=== PATIENT | male | born 1980 | race Caucasian/White ===

== ENCOUNTER 2018-05-29 15:32 | Inpatient (IN) ==
[2018-05-29] MEDS ORDERED: SODIUM CHLORIDE 0.9% 500 ML IV STA (16:27)
[2018-05-29 16:34] LABS: Apearance,Urine CLEAR (Clear); Bilirubin,Urine Negative (Negative); Blood, Urine Negative (Negative); Glucose,Urine (UA) Negative (Negative); Ketones,Urine Negative (Negative); Mucus,Urine Occasional /LPF (Occasional); Nitrite,Urine Negative (Negative); Protein,Urine Negative; RBC,Urine 1 /HPF (0-4); Urine Color Yellow (Yellow); Urine Urobilinogen < 2.0 EU/DL (0.2-1.0); WBC,Urine <1 /HPF (0-6)
[2018-05-29 16:38] LABS: Barbiturates Screen,Urine Negative (Negative); Benzodiazepines Screen,Urine Positive (Negative); Cannabinoid Screen,Urine Negative (Negative); Opiate Screen,Urine Negative (Negative); Phencyclidine Screen,Urine Negative (Negative)
[2018-05-29 18:06] LABS: Basophils % 0.2 % (0.0-0.8); Eosinophils # 0.3 10*3/uL (0.0-0.87); Eosinophils % 4.8 % (0.00-10.9); Hematocrit 37.2 VOL% (42.0-52.0); Hemoglobin 12.5 GM/DL (14.0-18.0); Immature Granulocytes % 0.5 %; Immature Granulocytes Absolute 0.03 #; Lymphocytes # 1.8 10*3/uL (1.4-4.0); Lymphocytes % 29.1 % (21.2-54.2); Mean Corpuscular HGB Conc 33.6 GM/DL (32-36); Mean Corpuscular Hemoglobin 32 PG (27-34); Mean Corpuscular Volume 96.4 FL (87-102); Mean Platelet Volume 9.6 FL (9.6-12.0); Monocytes # 0.5 10*3/uL (0.11-0.8); Monocytes % 8.9 % (1.7-12.7); Neutrophils # 3.4 10*3/uL (1.4-7.4); Neutrophils % 56.5 % (38.7-73.9); Platelet Count 249 T/CUMM (130-400); Red Blood Count 3.86 MC/CUMM (3.8-5.5); Red Cell Distribution Width 12.4 % (9.3-17.3); White Blood Count 6.1 T/CUMM (4-12)
[2018-05-29 18:19] LABS: INR 1.1; PT Patient Result 11.2 SECS
[2018-05-29 18:21] LABS: Ammonia 299 UMOL/L (11-32)
[2018-05-29 18:32] LABS: Alanine Aminotransferase 26 U/L (16-61); Alkaline Phosphatase 57 U/L (45-117); Aspartate Amino Transferase 25 U/L (0-37); Bilirubin,Total < 0.39 MG/DL (0.2-1.0); Blood Urea Nitrogen 11 MG/DL (7-18); Calcium 8.6 MG/DL (8.5-10.1); Glucose 93 MG/DL (74-106); Osmolality,Calculated 286.7 MOS/KG (273-304); Sodium 145 MMOL/L (136-145); Thyroid Stimulating Hormone 0.559 uIU/ml (0.358-3.74); Total Protein 7.1 G/DL (6.4-8.3); Troponin I < 0.015 NG/ML (0.00-0.045)
[2018-05-29 18:47] LABS: Salicylate < 2.8 MG/DL (2.8-20)
[2018-05-29 18:48] LABS: Acetaminophen < 2.0 UG/ML (10-30)
[2018-05-29] MEDS ORDERED: PROPOFOL 1,000 MG/100 ML BOTTLE IV ONE (19:34)
[2018-05-29] MEDS ORDERED: ROCURONIUM 100 MG/10 ML VIAL IV ONE (21:03)
[2018-05-29] MEDS ORDERED: ETOMIDATE 20 MG/10 ML VIAL IV ONE (21:03)
[2018-05-29] MEDS ORDERED: VECURONIUM 10 MG VIAL IV ONE (21:03)
[2018-05-29 21:11] LABS: ABG Base Excess -0.2 MMOL/L (-2.5-2.5); ABG HCO3 25.4 MMOL/L (20-26); ABG Oxygen Saturation 98.4 % (95-100); ABG PCO2 45.1 MM HG (35-48); ABG PH 7.368 (7.35-7.45); ABG PO2 140.5 MM HG (80-95); ABG TCO2 26.8 MMOL/L (23-27)
[2018-05-29] MEDS ORDERED: ONDANSETRON 4 MG/2 ML VIAL IV PRN (21:11)
[2018-05-29] MEDS ORDERED: ALBUTEROL 2.5 MG/3 ML NEB RESP TX PRN (21:11)
[2018-05-29] MEDS: SODIUM CHLORIDE 0.9% 1,000 ML IV SCH (21:58)
[2018-05-29] MEDS: LACTULOSE 20 GM/30 ML UDCUP NG SCH (21:58)
[2018-05-29] MEDS: MIDAZOLAM 100 MG in SODIUM CHLORIDE 0.9% 80 ML IV PRN (21:59)
[2018-05-29] MEDS: ENOXAPARIN 40 MG/0.4 ML SYRINGE SUBCUT SCH (21:59)
[2018-05-29] MEDS: PANTOPRAZOLE 40 MG VIAL IV SCH (22:56)
[2018-05-30] MEDS: LACTULOSE 20 GM/30 ML UDCUP NG SCH ×6 (00:51→21:45)
[2018-05-30] MEDS: PROPOFOL 1,000 MG/100 ML BOTTLE IV SCH ×5 (01:58→18:31)
[2018-05-30 04:00] LABS: ABG Base Excess 0.7 MMOL/L (-2.5-2.5); ABG HCO3 25.9 MMOL/L (20-26); ABG Oxygen Saturation 98.6 % (95-100); ABG PCO2 43.9 MM HG (35-48); ABG PH 7.389 (7.35-7.45); ABG PO2 169.2 MM HG (80-95); ABG TCO2 27.3 MMOL/L (23-27); Allen Test Positive; Pt O2 Delivery Device Ventilator
[2018-05-30 05:36] LABS: Basophils % 0.3 % (0.0-0.8); Eosinophils # 0.3 10*3/uL (0.0-0.87); Eosinophils % 4.8 % (0.00-10.9); Hematocrit 33.5 VOL% (42.0-52.0); Hemoglobin 11.3 GM/DL (14.0-18.0); Immature Granulocytes % 1.3 %; Immature Granulocytes Absolute 0.08 #; Lymphocytes # 1.7 10*3/uL (1.4-4.0); Lymphocytes % 27.4 % (21.2-54.2); Mean Corpuscular HGB Conc 33.7 GM/DL (32-36); Mean Corpuscular Hemoglobin 32 PG (27-34); Mean Corpuscular Volume 95.2 FL (87-102); Mean Platelet Volume 9.7 FL (9.6-12.0); Monocytes # 0.6 10*3/uL (0.11-0.8); Monocytes % 10.6 % (1.7-12.7); Neutrophils # 3.4 10*3/uL (1.4-7.4); Neutrophils % 55.6 % (38.7-73.9); Platelet Count 258 T/CUMM (130-400); Red Blood Count 3.52 MC/CUMM (3.8-5.5); Red Cell Distribution Width 12.5 % (9.3-17.3); White Blood Count 6.1 T/CUMM (4-12)
[2018-05-30 05:57] LABS: Ammonia 90 UMOL/L (11-32)
[2018-05-30 06:02] LABS: Alanine Aminotransferase 23 U/L (16-61); Albumin 2.6 G/DL (3.4-5.0); Alkaline Phosphatase 53 U/L (45-117); Aspartate Amino Transferase 22 U/L (0-37); Bilirubin,Total < 0.39 MG/DL (0.2-1.0); Blood Urea Nitrogen 11 MG/DL (7-18); Glucose 83 MG/DL (74-106); Osmolality,Calculated 291.3 MOS/KG (273-304); Sodium 148 MMOL/L (136-145); Total Protein 6.3 G/DL (6.4-8.3)
[2018-05-30] MEDS: SODIUM CHLORIDE 0.9% 1,000 ML IV SCH ×3 (06:20→17:10)
[2018-05-30] MEDS: MIDAZOLAM 100 MG in SODIUM CHLORIDE 0.9% 80 ML IV PRN (08:14)
[2018-05-30] MEDS: ENOXAPARIN 40 MG/0.4 ML SYRINGE SUBCUT SCH (21:45)
[2018-05-30] MEDS: PANTOPRAZOLE 40 MG VIAL IV SCH (21:46)
[2018-05-31] MEDS: SODIUM CHLORIDE 0.9% 1,000 ML IV SCH ×4 (01:10→17:37)
[2018-05-31] MEDS: PROPOFOL 1,000 MG/100 ML BOTTLE IV SCH ×5 (01:10→22:18)
[2018-05-31] MEDS: LACTULOSE 20 GM/30 ML UDCUP NG SCH ×6 (02:21→21:10)
[2018-05-31] MEDS: MIDAZOLAM 100 MG in SODIUM CHLORIDE 0.9% 80 ML IV PRN ×2 (03:25→21:09)
[2018-05-31 03:34] LABS: ABG Base Excess -0.1 MMOL/L (-2.5-2.5); ABG HCO3 24.4 MMOL/L (20-26); ABG Oxygen Saturation 99.1 % (95-100); ABG PCO2 35.4 MM HG (35-48); ABG PH 7.434 (7.35-7.45); ABG TCO2 20.9 MMOL/L (23-27); Allen Test Positive; Pt O2 Delivery Device Ventilator
[2018-05-31 04:37] LABS: Basophils % 0.2 % (0.0-0.8); Eosinophils # 0.3 10*3/uL (0.0-0.87); Eosinophils % 2.9 % (0.00-10.9); Hematocrit 36.5 VOL% (42.0-52.0); Hemoglobin 12.1 GM/DL (14.0-18.0); Immature Granulocytes % 0.5 %; Immature Granulocytes Absolute 0.05 #; Lymphocytes # 1.3 10*3/uL (1.4-4.0); Lymphocytes % 13.8 % (21.2-54.2); Mean Corpuscular HGB Conc 33.2 GM/DL (32-36); Mean Corpuscular Hemoglobin 32 PG (27-34); Mean Corpuscular Volume 96.6 FL (87-102); Mean Platelet Volume 9.6 FL (9.6-12.0); Monocytes # 0.8 10*3/uL (0.11-0.8); Monocytes % 7.8 % (1.7-12.7); Neutrophils # 7.3 10*3/uL (1.4-7.4); Neutrophils % 74.8 % (38.7-73.9); Platelet Count 265 T/CUMM (130-400); Red Blood Count 3.78 MC/CUMM (3.8-5.5); Red Cell Distribution Width 12.5 % (9.3-17.3); White Blood Count 9.7 T/CUMM (4-12)
[2018-05-31 05:04] LABS: Calcium 8.3 MG/DL (8.5-10.1); Osmolality,Calculated 290.4 MOS/KG (273-304)
[2018-05-31] MEDS: chlordiazePOXIDE 25 MG CAPSULE PO SCH ×3 (08:34→21:10)
[2018-05-31] MEDS: QUEtiapine 100 MG TABLET PER TUBE SCH ×2 (12:31→21:10)
[2018-05-31] MEDS ORDERED: GLUCAGON 1 MG VIAL IM PRN (14:07)
[2018-05-31] MEDS ORDERED: DEXTROSE 50% 25 GM/50 ML VIAL IV PRN (14:07)
[2018-05-31] MEDS: INSULIN REGULAR 100 UNIT/ML SUBCUT SCH ×2 (19:07→23:57)
[2018-05-31] MEDS: PANTOPRAZOLE 40 MG VIAL IV SCH (21:10)
[2018-05-31] MEDS: ENOXAPARIN 40 MG/0.4 ML SYRINGE SUBCUT SCH (21:10)
[2018-06-01] MEDS: LACTULOSE 20 GM/30 ML UDCUP NG SCH ×6 (01:14→20:38)
[2018-06-01] MEDS: SODIUM CHLORIDE 0.9% 1,000 ML IV SCH ×4 (01:29→18:25)
[2018-06-01] MEDS: PROPOFOL 1,000 MG/100 ML BOTTLE IV SCH ×7 (01:56→22:03)
[2018-06-01 02:55] LABS: ABG Base Excess 0.5 MMOL/L (-2.5-2.5); ABG HCO3 24.9 MMOL/L (20-26); ABG Oxygen Saturation 99.3 % (95-100); ABG PCO2 41.1 MM HG (35-48); ABG PH 7.398 (7.35-7.45); ABG TCO2 22.7 MMOL/L (23-27); Allen Test Positive; Pt O2 Delivery Device Ventilator
[2018-06-01 03:21] LABS: Basophils % 0.3 % (0.0-0.8); Eosinophils # 0.3 10*3/uL (0.0-0.87); Hematocrit 33.5 VOL% (42.0-52.0); Hemoglobin 10.8 GM/DL (14.0-18.0); Immature Granulocytes % 0.8 %; Immature Granulocytes Absolute 0.06 #; Lymphocytes % 25.9 % (21.2-54.2); Mean Corpuscular HGB Conc 32.2 GM/DL (32-36); Mean Corpuscular Hemoglobin 32 PG (27-34); Mean Corpuscular Volume 99.1 FL (87-102); Mean Platelet Volume 9.5 FL (9.6-12.0); Monocytes # 0.7 10*3/uL (0.11-0.8); Monocytes % 9.2 % (1.7-12.7); Neutrophils # 4.6 10*3/uL (1.4-7.4); Neutrophils % 59.8 % (38.7-73.9); Platelet Count 220 T/CUMM (130-400); Red Blood Count 3.38 MC/CUMM (3.8-5.5); Red Cell Distribution Width 12.2 % (9.3-17.3); White Blood Count 7.7 T/CUMM (4-12)
[2018-06-01 03:46] LABS: Osmolality,Calculated 290.4 MOS/KG (273-304); Potassium 3.6 MMOL/L (3.5-5.1)
[2018-06-01 04:59] LABS: Prealbumin 17.6 MG/DL (20-40)
[2018-06-01] MEDS: INSULIN REGULAR 100 UNIT/ML SUBCUT SCH ×4 (06:07→23:07)
[2018-06-01] MEDS: QUEtiapine 100 MG TABLET PER TUBE SCH ×2 (09:23→20:39)
[2018-06-01] MEDS: chlordiazePOXIDE 25 MG CAPSULE PO SCH ×3 (09:23→20:39)
[2018-06-01] MEDS: HALOPERIDOL 5 MG/ML AMP IM PRN (09:33)
[2018-06-01] MEDS ORDERED: HALOPERIDOL 5 MG/ML AMP IM PRN (10:02)
[2018-06-01] MEDS ORDERED: LORazepam 2 MG/1 ML VIAL IV ONE (10:05)
[2018-06-01] MEDS: LORazepam 2 MG/1 ML VIAL IM PRN ×2 (10:15→10:25)
[2018-06-01] MEDS ORDERED: ETOMIDATE 20 MG/10 ML VIAL IV ONE ×2 (10:30→10:36)
[2018-06-01] MEDS ORDERED: SUCCINYLCHOLINE 200 MG/10 ML VIAL IV ONE ×2 (10:30→10:45)
[2018-06-01] MEDS ORDERED: PROPOFOL 1,000 MG/100 ML BOTTLE IV ONE (10:36)
[2018-06-01] MEDS ORDERED: SUCCINYLCHOLINE 200 MG/10 ML VIAL ONE (10:36)
[2018-06-01] MEDS: MIDAZOLAM 100 MG in SODIUM CHLORIDE 0.9% 80 ML IV PRN (12:16)
[2018-06-01] MEDS ORDERED: DIVALPROEX ER 500 MG TABLET PO SCH (14:30)
[2018-06-01] MEDS: ARIPiprazole 5 MG TABLET PER TUBE SCH (16:18)
[2018-06-01] MEDS: BENZTROPINE 1 MG TABLET PER TUBE SCH ×2 (16:18→20:39)
[2018-06-01] MEDS: DIVALPROEX 500 MG TABLET PO SCH ×2 (16:18→20:39)
[2018-06-01] MEDS: LOSARTAN 25 MG TABLET PER TUBE SCH (16:19)
[2018-06-01] MEDS: risperiDONE 1 MG TABLET PER TUBE SCH ×2 (16:19→20:39)
[2018-06-01] MEDS: amLODIPine 10 MG TABLET PER TUBE SCH (16:19)
[2018-06-01] MEDS: OLANZapine 5 MG TABLET PER TUBE SCH (20:39)
[2018-06-01] MEDS: PANTOPRAZOLE 40 MG VIAL IV SCH (20:40)
[2018-06-01] MEDS: ENOXAPARIN 40 MG/0.4 ML SYRINGE SUBCUT SCH (20:40)
[2018-06-02] MEDS: LACTULOSE 20 GM/30 ML UDCUP NG SCH ×6 (01:13→20:25)
[2018-06-02] MEDS: PROPOFOL 1,000 MG/100 ML BOTTLE IV SCH ×8 (01:13→21:44)
[2018-06-02] MEDS: SODIUM CHLORIDE 0.9% 1,000 ML IV SCH ×3 (02:03→10:05)
[2018-06-02 04:03] LABS: ABG Base Excess 2.9 MMOL/L (-2.5-2.5); ABG Oxygen Saturation 98.2 % (95-100); ABG PCO2 49.9 MM HG (35-48); ABG PH 7.371 (7.35-7.45); ABG TCO2 26.2 MMOL/L (23-27)
[2018-06-02] MEDS: INSULIN REGULAR 100 UNIT/ML SUBCUT SCH ×4 (05:26→23:58)
[2018-06-02] MEDS: LOSARTAN 25 MG TABLET PER TUBE SCH (09:27)
[2018-06-02] MEDS: amLODIPine 10 MG TABLET PER TUBE SCH (09:27)
[2018-06-02] MEDS: DIVALPROEX 500 MG TABLET PO SCH ×2 (09:27→20:25)
[2018-06-02] MEDS: chlordiazePOXIDE 25 MG CAPSULE PO SCH ×3 (09:27→20:26)
[2018-06-02] MEDS: BENZTROPINE 1 MG TABLET PER TUBE SCH ×2 (09:27→20:26)
[2018-06-02] MEDS: risperiDONE 1 MG TABLET PER TUBE SCH ×2 (09:53→20:25)
[2018-06-02] MEDS: ARIPiprazole 5 MG TABLET PER TUBE SCH (09:57)
[2018-06-02] MEDS: SODIUM CHLORIDE 0.45% 1,000 ML IV SCH ×2 (15:36→23:57)
[2018-06-02] MEDS: cloNIDine 0.1 MG TABLET PO PRN (16:28)
[2018-06-02] MEDS: QUEtiapine 100 MG TABLET PER TUBE SCH (20:25)
[2018-06-02] MEDS: OLANZapine 5 MG TABLET PER TUBE SCH (20:26)
[2018-06-02] MEDS: PANTOPRAZOLE 40 MG VIAL IV SCH (20:26)
[2018-06-02] MEDS: ENOXAPARIN 40 MG/0.4 ML SYRINGE SUBCUT SCH (20:35)
[2018-06-03] MEDS: PROPOFOL 1,000 MG/100 ML BOTTLE IV SCH ×7 (00:50→23:40)
[2018-06-03] MEDS: LACTULOSE 20 GM/30 ML UDCUP NG SCH ×6 (01:55→20:26)
[2018-06-03] MEDS: MIDAZOLAM 100 MG in SODIUM CHLORIDE 0.9% 80 ML IV PRN (03:33)
[2018-06-03 04:05] LABS: ABG Base Excess 4.2 MMOL/L (-2.5-2.5); ABG HCO3 28.2 MMOL/L (20-26); ABG Oxygen Saturation 96.5 % (95-100); ABG PCO2 48.6 MM HG (35-48); ABG PH 7.399 (7.35-7.45); ABG TCO2 26.6 MMOL/L (23-27)
[2018-06-03] MEDS: INSULIN REGULAR 100 UNIT/ML SUBCUT SCH ×4 (05:20→23:22)
[2018-06-03] MEDS: SODIUM CHLORIDE 0.45% 1,000 ML IV SCH ×3 (08:58→23:40)
[2018-06-03] MEDS: BENZTROPINE 1 MG TABLET PER TUBE SCH ×2 (09:27→20:26)
[2018-06-03] MEDS: LOSARTAN 25 MG TABLET PER TUBE SCH (09:27)
[2018-06-03] MEDS: amLODIPine 10 MG TABLET PER TUBE SCH (09:27)
[2018-06-03] MEDS: ARIPiprazole 5 MG TABLET PER TUBE SCH (09:28)
[2018-06-03] MEDS: chlordiazePOXIDE 25 MG CAPSULE PO SCH ×3 (09:28→20:26)
[2018-06-03] MEDS: DIVALPROEX 500 MG TABLET PO SCH ×2 (09:28→20:26)
[2018-06-03] MEDS: risperiDONE 1 MG TABLET PER TUBE SCH ×2 (09:30→20:26)
[2018-06-03 11:43] LABS: Calcium 8.1 MG/DL (8.5-10.1); Osmolality,Calculated 291.4 MOS/KG (273-304); Potassium 3.4 MMOL/L (3.5-5.1)
[2018-06-03] MEDS: OLANZapine 5 MG TABLET PER TUBE SCH (20:26)
[2018-06-03] MEDS: QUEtiapine 100 MG TABLET PER TUBE SCH (20:26)
[2018-06-03] MEDS: PANTOPRAZOLE 40 MG VIAL IV SCH (20:27)
[2018-06-03] MEDS: ENOXAPARIN 40 MG/0.4 ML SYRINGE SUBCUT SCH (20:45)
[2018-06-04] MEDS: LACTULOSE 20 GM/30 ML UDCUP NG SCH ×6 (01:03→20:49)
[2018-06-04] MEDS: PROPOFOL 1,000 MG/100 ML BOTTLE IV SCH ×7 (02:35→22:18)
[2018-06-04 04:18] LABS: Calcium 7.8 MG/DL (8.5-10.1); Osmolality,Calculated 294.1 MOS/KG (273-304); Potassium 3.6 MMOL/L (3.5-5.1); Prealbumin 19.2 MG/DL (20-40)
[2018-06-04 05:18] LABS: ABG Base Excess 4.3 MMOL/L (-2.5-2.5); ABG HCO3 28.3 MMOL/L (20-26); ABG Oxygen Saturation 97.4 % (95-100); ABG PCO2 43.5 MM HG (35-48); ABG PH 7.435 (7.35-7.45); ABG PO2 94.9 MM HG (80-95); ABG TCO2 24.9 MMOL/L (23-27)
[2018-06-04] MEDS: INSULIN REGULAR 100 UNIT/ML SUBCUT SCH ×4 (06:04→23:11)
[2018-06-04] MEDS ORDERED: MAGNESIUM SULF RIDER 4 GM in PREMIX 1 EACH IV PRN (08:01)
[2018-06-04] MEDS ORDERED: MAGNESIUM SULF RIDER 2 GM in PREMIX 1 EACH IV PRN (08:01)
[2018-06-04] MEDS: SODIUM CHLORIDE 0.45% 1,000 ML IV SCH ×2 (08:15→16:20)
[2018-06-04] MEDS: POTASSIUM CHLORIDE 20 MEQ/15 ML UDCUP PER TUBE PRN (09:27)
[2018-06-04] MEDS: ARIPiprazole 5 MG TABLET PER TUBE SCH (09:28)
[2018-06-04] MEDS: risperiDONE 1 MG TABLET PER TUBE SCH ×2 (09:28→20:49)
[2018-06-04] MEDS: DIVALPROEX 500 MG TABLET PO SCH ×2 (09:28→20:49)
[2018-06-04] MEDS: chlordiazePOXIDE 25 MG CAPSULE PO SCH ×2 (09:29→14:00)
[2018-06-04] MEDS: LOSARTAN 25 MG TABLET PER TUBE SCH (09:29)
[2018-06-04] MEDS: amLODIPine 10 MG TABLET PER TUBE SCH (09:29)
[2018-06-04] MEDS: HALOPERIDOL 5 MG/ML AMP IM PRN ×2 (09:29→13:37)
[2018-06-04] MEDS: BENZTROPINE 1 MG TABLET PER TUBE SCH ×2 (09:29→20:50)
[2018-06-04] MEDS ORDERED: hydrALAZINE 20 MG/1 ML VIAL ONE (14:17)
[2018-06-04] MEDS: hydrALAZINE 20 MG/1 ML VIAL IV PRN (14:18)
[2018-06-04] MEDS: ALBUTEROL/IPRATROPIUM 3 ML NEB RESP TX SCH ×2 (15:00→19:14)
[2018-06-04] MEDS ORDERED: chlordiazePOXIDE 25 MG CAPSULE PO SCH (15:21)
[2018-06-04] MEDS: CLORAZEPATE 7.5 MG TABLET PO SCH ×2 (16:30→21:00)
[2018-06-04] MEDS: ACETAMINOPHEN 325 MG TABLET PO PRN ×2 (16:55→20:49)
[2018-06-04] MEDS: QUEtiapine 100 MG TABLET PER TUBE SCH (20:49)
[2018-06-04] MEDS: PANTOPRAZOLE 40 MG VIAL IV SCH (20:49)
[2018-06-04] MEDS: ENOXAPARIN 40 MG/0.4 ML SYRINGE SUBCUT SCH (20:49)
[2018-06-04] MEDS: OLANZapine 5 MG TABLET PER TUBE SCH (20:50)
[2018-06-05] MEDS: SODIUM CHLORIDE 0.45% 1,000 ML IV SCH ×2 (00:25→08:25)
[2018-06-05] MEDS: ALBUTEROL/IPRATROPIUM 3 ML NEB RESP TX SCH ×4 (01:05→19:13)
[2018-06-05] MEDS: PROPOFOL 1,000 MG/100 ML BOTTLE IV SCH ×2 (01:20→03:55)
[2018-06-05] MEDS: LACTULOSE 20 GM/30 ML UDCUP NG SCH ×6 (01:20→21:00)
[2018-06-05 03:31] LABS: ABG Base Excess 3.1 MMOL/L (-2.5-2.5); ABG HCO3 27.1 MMOL/L (20-26); ABG PCO2 41.6 MM HG (35-48); ABG PH 7.432 (7.35-7.45); ABG PO2 89.4 MM HG (80-95); ABG TCO2 23.2 MMOL/L (23-27)
[2018-06-05] MEDS: MIDAZOLAM 100 MG in SODIUM CHLORIDE 0.9% 80 ML IV PRN (03:54)
[2018-06-05 04:20] LABS: Osmolality,Calculated 291.3 MOS/KG (273-304); Potassium 3.5 MMOL/L (3.5-5.1)
[2018-06-05] MEDS: INSULIN REGULAR 100 UNIT/ML SUBCUT SCH ×4 (06:05→23:41)
[2018-06-05] MEDS: POTASSIUM CHLORIDE 20 MEQ/15 ML UDCUP PER TUBE PRN ×2 (06:11→08:15)
[2018-06-05] MEDS: CLORAZEPATE 7.5 MG TABLET PO SCH ×3 (06:11→21:02)
[2018-06-05] MEDS: HALOPERIDOL 5 MG/ML AMP IM PRN (07:08)
[2018-06-05] MEDS: risperiDONE 1 MG TABLET PER TUBE SCH ×2 (08:14→21:01)
[2018-06-05] MEDS: BENZTROPINE 1 MG TABLET PER TUBE SCH ×2 (08:15→21:02)
[2018-06-05] MEDS: ARIPiprazole 5 MG TABLET PER TUBE SCH (08:15)
[2018-06-05] MEDS: DIVALPROEX 500 MG TABLET PO SCH ×2 (08:15→21:01)
[2018-06-05] MEDS: LOSARTAN 25 MG TABLET PER TUBE SCH (08:15)
[2018-06-05] MEDS: amLODIPine 10 MG TABLET PER TUBE SCH (08:15)
[2018-06-05] MEDS: LORazepam 2 MG/1 ML VIAL IM PRN ×2 (09:30→10:36)
[2018-06-05] MEDS: hydrALAZINE 20 MG/1 ML VIAL IV PRN ×2 (09:30→16:40)
[2018-06-05] MEDS: cloNIDine 0.1 MG TABLET PO PRN ×2 (11:53→18:20)
[2018-06-05] MEDS: ACETAMINOPHEN 325 MG TABLET PO PRN ×2 (11:53→21:01)
[2018-06-05] MEDS: METOPROLOL TARTRATE 25 MG TABLET PO SCH ×2 (13:12→21:01)
[2018-06-05] MEDS: ENOXAPARIN 40 MG/0.4 ML SYRINGE SUBCUT SCH (21:00)
[2018-06-05] MEDS: QUEtiapine 100 MG TABLET PER TUBE SCH (21:01)
[2018-06-05] MEDS: OLANZapine 5 MG TABLET PER TUBE SCH (21:02)
[2018-06-05] MEDS: PANTOPRAZOLE 40 MG VIAL IV SCH (21:03)
[2018-06-06] MEDS: ALBUTEROL/IPRATROPIUM 3 ML NEB RESP TX SCH ×4 (00:05→19:13)
[2018-06-06] MEDS: ACETAMINOPHEN 325 MG TABLET PO PRN (01:11)
[2018-06-06] MEDS: LACTULOSE 20 GM/30 ML UDCUP NG SCH ×5 (01:11→13:54)
[2018-06-06 04:49] LABS: Basophils % 0.3 % (0.0-0.8); Eosinophils # 0.1 10*3/uL (0.0-0.87); Hemoglobin 11.8 GM/DL (14.0-18.0); Immature Granulocytes % 0.8 %; Immature Granulocytes Absolute 0.12 #; Lymphocytes # 2.4 10*3/uL (1.4-4.0); Lymphocytes % 16.6 % (21.2-54.2); Mean Corpuscular HGB Conc 33.7 GM/DL (32-36); Mean Corpuscular Hemoglobin 32 PG (27-34); Mean Corpuscular Volume 94.1 FL (87-102); Mean Platelet Volume 9.5 FL (9.6-12.0); Monocytes # 1.3 10*3/uL (0.11-0.8); Neutrophils # 10.6 10*3/uL (1.4-7.4); Neutrophils % 72.3 % (38.7-73.9); Platelet Count 318 T/CUMM (130-400); Red Blood Count 3.72 MC/CUMM (3.8-5.5); Red Cell Distribution Width 12.5 % (9.3-17.3); White Blood Count 14.7 T/CUMM (4-12)
[2018-06-06] MEDS: INSULIN REGULAR 100 UNIT/ML SUBCUT SCH ×4 (05:12→23:39)
[2018-06-06 05:14] LABS: Calcium 8.7 MG/DL (8.5-10.1); Osmolality,Calculated 285.8 MOS/KG (273-304); Potassium 3.6 MMOL/L (3.5-5.1)
[2018-06-06] MEDS: POTASSIUM CHLORIDE 20 MEQ/15 ML UDCUP PER TUBE PRN ×2 (06:00→08:16)
[2018-06-06] MEDS: hydrALAZINE 20 MG/1 ML VIAL IV PRN (06:18)
[2018-06-06] MEDS: HALOPERIDOL 5 MG/ML AMP IM PRN (07:07)
[2018-06-06] MEDS: ARIPiprazole 5 MG TABLET PER TUBE SCH (08:13)
[2018-06-06] MEDS: CLORAZEPATE 7.5 MG TABLET PO SCH ×4 (08:14→20:47)
[2018-06-06] MEDS: risperiDONE 1 MG TABLET PER TUBE SCH ×2 (08:14→20:47)
[2018-06-06] MEDS: LOSARTAN 25 MG TABLET PER TUBE SCH (08:15)
[2018-06-06] MEDS: amLODIPine 10 MG TABLET PER TUBE SCH (08:15)
[2018-06-06] MEDS: METOPROLOL TARTRATE 25 MG TABLET PO SCH ×2 (08:15→20:47)
[2018-06-06] MEDS: BENZTROPINE 1 MG TABLET PER TUBE SCH ×2 (08:15→20:46)
[2018-06-06] MEDS: DIVALPROEX 500 MG TABLET PO SCH ×2 (08:15→20:47)
[2018-06-06] MEDS: cefTRIAXone 1,000 MG in SYRINGE 1 EACH IV SCH (13:09)
[2018-06-06 14:27] LABS: Apearance,Urine CLEAR (Clear); Bilirubin,Urine Negative (Negative); Blood, Urine Negative (Negative); Glucose,Urine (UA) Negative (Negative); Ketones,Urine 5 mg/dL (Negative); Mucus,Urine Occasional /LPF (Occasional); Nitrite,Urine Negative (Negative); Protein,Urine Negative; RBC,Urine 9 /HPF (0-4); Urine Color Yellow (Yellow); Urine Specific Gravity 1.012 (1.001-1.035); WBC,Urine 6 /HPF (0-6)
[2018-06-06] MEDS: PANTOPRAZOLE 40 MG VIAL IV SCH (20:46)
[2018-06-06] MEDS: OLANZapine 5 MG TABLET PER TUBE SCH (20:46)
[2018-06-06] MEDS: ENOXAPARIN 40 MG/0.4 ML SYRINGE SUBCUT SCH (20:46)
[2018-06-07] MEDS: ALBUTEROL/IPRATROPIUM 3 ML NEB RESP TX SCH ×4 (01:32→19:00)
[2018-06-07 02:52] LABS: Basophils # 0.1 10*3/uL (0.0-0.2); Basophils % 0.3 % (0.0-0.8); Eosinophils # 0.2 10*3/uL (0.0-0.87); Eosinophils % 1.1 % (0.00-10.9); Hematocrit 37.5 VOL% (42.0-52.0); Hemoglobin 12.1 GM/DL (14.0-18.0); Immature Granulocytes % 0.8 %; Immature Granulocytes Absolute 0.13 #; Lymphocytes # 2.4 10*3/uL (1.4-4.0); Lymphocytes % 14.1 % (21.2-54.2); Mean Corpuscular HGB Conc 32.3 GM/DL (32-36); Mean Corpuscular Hemoglobin 31 PG (27-34); Mean Corpuscular Volume 96.4 FL (87-102); Mean Platelet Volume 9.8 FL (9.6-12.0); Monocytes # 1.4 10*3/uL (0.11-0.8); Monocytes % 8.2 % (1.7-12.7); Neutrophils # 13.1 10*3/uL (1.4-7.4); Neutrophils % 75.5 % (38.7-73.9); Platelet Count 343 T/CUMM (130-400); Red Blood Count 3.89 MC/CUMM (3.8-5.5); Red Cell Distribution Width 12.6 % (9.3-17.3); White Blood Count 17.3 T/CUMM (4-12)
[2018-06-07 03:29] LABS: Calcium 8.7 MG/DL (8.5-10.1); Osmolality,Calculated 289.7 MOS/KG (273-304); Potassium 3.6 MMOL/L (3.5-5.1)
[2018-06-07] MEDS: LORazepam 2 MG/1 ML VIAL IM PRN ×2 (03:55→21:00)
[2018-06-07] MEDS: INSULIN REGULAR 100 UNIT/ML SUBCUT SCH ×2 (06:39→12:30)
[2018-06-07] MEDS: risperiDONE 1 MG TABLET PER TUBE SCH (08:25)
[2018-06-07] MEDS: METOPROLOL TARTRATE 25 MG TABLET PO SCH ×2 (08:26→20:25)
[2018-06-07] MEDS: DIVALPROEX 500 MG TABLET PO SCH ×2 (08:26→20:27)
[2018-06-07] MEDS: BENZTROPINE 1 MG TABLET PER TUBE SCH ×2 (08:26→20:25)
[2018-06-07] MEDS: amLODIPine 10 MG TABLET PER TUBE SCH (08:26)
[2018-06-07] MEDS: LOSARTAN 25 MG TABLET PER TUBE SCH (08:26)
[2018-06-07] MEDS ORDERED: INFLUENZA VIRUS VACCINE 0.5 ML SYRINGE IM ONE (09:00)
[2018-06-07] MEDS: CLORAZEPATE 7.5 MG TABLET PO SCH ×3 (10:57→20:27)
[2018-06-07] MEDS: VANCOMYCIN INJ 1,500 MG in SODIUM CHLORIDE 0.9% 500 ML IV SCH ×2 (11:25→18:57)
[2018-06-07] MEDS: ZIPRASIDONE 20 MG CAPSULE PO SCH ×2 (14:38→20:27)
[2018-06-07] MEDS: cefTRIAXone 1,000 MG in SYRINGE 1 EACH IV SCH ×2 (14:38→14:40)
[2018-06-07] MEDS ORDERED: cefTRIAXone 1,000 MG in SYRINGE 1 EACH IV SCH (15:00)
[2018-06-07] MEDS: PANTOPRAZOLE 40 MG VIAL IV SCH (20:24)
[2018-06-07] MEDS: ENOXAPARIN 40 MG/0.4 ML SYRINGE SUBCUT SCH (20:32)
[2018-06-07] MEDS: HALOPERIDOL 5 MG/ML AMP IM PRN (21:12)
[2018-06-07] MEDS ORDERED: HALOPERIDOL 5 MG/ML AMP IV PRN (21:13)
[2018-06-07] MEDS ORDERED: OLANZapine 10 MG VIAL IM ONE (21:20)
[2018-06-07] MEDS ORDERED: DEXMEDETOMIDINE 200 MCG in SODIUM CHLORIDE 0.9% 48 ML IV PRN ×2 (21:44→21:47)
[2018-06-07] MEDS: LORazepam 2 MG/1 ML VIAL IV PRN (22:24)
[2018-06-08] MEDS: ALBUTEROL/IPRATROPIUM 3 ML NEB RESP TX SCH ×4 (00:05→19:13)
[2018-06-08] MEDS: VANCOMYCIN INJ 1,500 MG in SODIUM CHLORIDE 0.9% 500 ML IV SCH ×2 (04:00→12:02)
[2018-06-08 05:08] LABS: Basophils # 0.1 10*3/uL (0.0-0.2); Basophils % 0.4 % (0.0-0.8); Eosinophils # 0.3 10*3/uL (0.0-0.87); Eosinophils % 2.8 % (0.00-10.9); Hematocrit 33.4 VOL% (42.0-52.0); Hemoglobin 11.2 GM/DL (14.0-18.0); Immature Granulocytes % 0.6 %; Immature Granulocytes Absolute 0.07 #; Lymphocytes # 1.7 10*3/uL (1.4-4.0); Lymphocytes % 14.6 % (21.2-54.2); Mean Corpuscular HGB Conc 33.5 GM/DL (32-36); Mean Corpuscular Hemoglobin 32 PG (27-34); Mean Corpuscular Volume 96.3 FL (87-102); Mean Platelet Volume 9.3 FL (9.6-12.0); Monocytes % 8.6 % (1.7-12.7); Neutrophils # 8.5 10*3/uL (1.4-7.4); Platelet Count 308 T/CUMM (130-400); Red Blood Count 3.47 MC/CUMM (3.8-5.5); Red Cell Distribution Width 12.5 % (9.3-17.3); White Blood Count 11.6 T/CUMM (4-12)
[2018-06-08 05:38] LABS: Calcium 8.9 MG/DL (8.5-10.1); Osmolality,Calculated 293.7 MOS/KG (273-304)
[2018-06-08] MEDS: amLODIPine 10 MG TABLET PER TUBE SCH (09:33)
[2018-06-08] MEDS: METOPROLOL TARTRATE 25 MG TABLET PO SCH ×2 (09:33→20:19)
[2018-06-08] MEDS: ZIPRASIDONE 20 MG CAPSULE PO SCH (09:33)
[2018-06-08] MEDS: BENZTROPINE 1 MG TABLET PER TUBE SCH ×2 (09:33→20:19)
[2018-06-08] MEDS: LOSARTAN 25 MG TABLET PER TUBE SCH (09:33)
[2018-06-08] MEDS: DIVALPROEX 500 MG TABLET PO SCH (09:33)
[2018-06-08] MEDS: CLORAZEPATE 7.5 MG TABLET PO SCH ×3 (09:33→20:18)
[2018-06-08] MEDS: LORazepam 2 MG/1 ML VIAL IV PRN (09:34)
[2018-06-08] MEDS ORDERED: ZIPRASIDONE 20 MG/1 ML VIAL IM SCH (10:00)
[2018-06-08] MEDS: LORazepam 2 MG/1 ML VIAL IM PRN (15:05)
[2018-06-08] MEDS ORDERED: diphenhydrAMINE 50 MG/1 ML VIAL IM ONE (17:31)
[2018-06-08] MEDS ORDERED: LORazepam 2 MG/1 ML VIAL IM ONE (17:31)
[2018-06-08] MEDS ORDERED: LORazepam 2 MG/1 ML VIAL IV ONE (17:31)
[2018-06-08] MEDS: HALOPERIDOL 5 MG/ML AMP IM PRN (17:43)
[2018-06-08] MEDS: OXcarbazepine 300 MG TABLET PO SCH (20:17)
[2018-06-08] MEDS: LACTULOSE 20 GM/30 ML UDCUP PO SCH (20:18)
[2018-06-08] MEDS: PANTOPRAZOLE 40 MG VIAL IV SCH (20:25)
[2018-06-08] MEDS ORDERED: DIVALPROEX 500 MG TABLET PO SCH (21:00)
[2018-06-08] MEDS ORDERED: OLANZapine 5 MG TABLET PO SCH ×2 (21:00)
[2018-06-09] MEDS: HALOPERIDOL 5 MG/ML AMP IM PRN ×2 (01:06→07:52)
[2018-06-09] MEDS: diphenhydrAMINE 50 MG/1 ML VIAL IM PRN ×2 (01:53→07:52)
[2018-06-09] MEDS: LORazepam 2 MG/1 ML VIAL IM PRN ×3 (01:53→11:25)
[2018-06-09] MEDS: ALBUTEROL/IPRATROPIUM 3 ML NEB RESP TX SCH ×2 (02:11→08:54)
[2018-06-09] MEDS: cloNIDine 0.1 MG TABLET PO PRN (04:38)
[2018-06-09] MEDS: ACETAMINOPHEN 325 MG TABLET PO PRN (04:38)
[2018-06-09 04:41] VITALS: BP 144/94
[2018-06-09 04:58] LABS: Basophils # 0.1 10*3/uL (0.0-0.2); Basophils % 0.6 % (0.0-0.8); Eosinophils # 0.4 10*3/uL (0.0-0.87); Eosinophils % 3.1 % (0.00-10.9); Hematocrit 34.6 VOL% (42.0-52.0); Hemoglobin 11.8 GM/DL (14.0-18.0); Immature Granulocytes % 0.5 %; Immature Granulocytes Absolute 0.06 #; Lymphocytes # 2.9 10*3/uL (1.4-4.0); Mean Corpuscular HGB Conc 34.1 GM/DL (32-36); Mean Corpuscular Hemoglobin 32 PG (27-34); Mean Corpuscular Volume 94.3 FL (87-102); Monocytes # 1.1 10*3/uL (0.11-0.8); Monocytes % 8.5 % (1.7-12.7); Neutrophils # 8.1 10*3/uL (1.4-7.4); Neutrophils % 64.3 % (38.7-73.9); Platelet Count 380 T/CUMM (130-400); Red Blood Count 3.67 MC/CUMM (3.8-5.5); Red Cell Distribution Width 12.2 % (9.3-17.3); White Blood Count 12.5 T/CUMM (4-12)
[2018-06-09 04:59] LABS: INR 1.1; PT Patient Result 11.9 SECS
[2018-06-09 05:32] LABS: Bilirubin,Direct 0.11 MG/DL (0.0-0.20); Bilirubin,Indirect 0.6 MG/DL (0.0-1.0); Bilirubin,Total 0.7 MG/DL (0.2-1.0); Total Protein 7.8 G/DL (6.4-8.3)
[2018-06-09] MEDS ORDERED: OLANZapine 5 MG TABLET PO SCH (09:00)
[2018-06-09] MEDS: OXcarbazepine 300 MG TABLET PO SCH ×2 (10:20→11:20)
[2018-06-09] MEDS: OLANZapine 5 MG TABLET PO SCH ×2 (10:20→11:20)
[2018-06-09] MEDS: LEVOFLOXACIN 750 MG TABLET PO SCH ×2 (10:20→11:20)
[2018-06-09] MEDS: METOPROLOL TARTRATE 25 MG TABLET PO SCH ×2 (10:20→11:20)
[2018-06-09] MEDS: CLORAZEPATE 7.5 MG TABLET PO SCH ×2 (10:20→11:20)
[2018-06-09] MEDS: LACTULOSE 20 GM/30 ML UDCUP PO SCH ×2 (10:20→12:00)
[2018-06-09] MEDS: BENZTROPINE 1 MG TABLET PER TUBE SCH ×2 (10:20→11:20)
[2018-06-09] MEDS: amLODIPine 10 MG TABLET PO SCH ×2 (10:20→11:20)
[2018-06-09] MEDS: LOSARTAN 25 MG TABLET PER TUBE SCH ×2 (10:20→11:20)
[2018-06-09] MEDS ORDERED: ZIPRASIDONE 20 MG/1 ML VIAL IM ONE (11:52)
== END 2018-06-09 12:20 | disposition hospice, home (50) | DRG 441 ==
LOC: N.ED 15:32 → SUATTDRO 19:22 → N.EDINP 19:22 → N.ICU 20:03 → N.5E 06-08 17:03 → N.ICU 06-08 20:06
PROVIDERS: ADMIT Internal Medicine; ATTEND Internal Medicine